=== PATIENT | male | born 1965 | race Two or more races ===

== ENCOUNTER 2017-12-22 20:31 | Emergency (ER) | payer MEDICAID ==
[~2017-12-22] VITALS: Ht 167.6 cm; Wt 72.1 kg
[2017-12-23] MEDS ORDERED: HYDROcodone-ACET 10/325MG TAB PO ONE (00:45)
[2017-12-23] MEDS ORDERED: cefTRIAXone SOD 1,000 MG VL IM ONE (00:45)
[2017-12-23 01:10] VITALS: BP 154/88
[2017-12-23] MEDS ORDERED: TETANUS-DIPTH-ACEL PERTUSSIS 0.5ML SYRG IM ONE (01:15)
== END 2017-12-23 01:39 | disposition home or self-care (01) ==
LOC: ER 20:31
DX: L02.511 Cutaneous abscess of right hand (principal)
CPT/HCPCS: 26010; 73140; 73200; 90471; 90715; 96372; 99284; J0696

== ENCOUNTER 2017-12-23 20:04 | Emergency (ER) | payer MEDICAID ==
[~2017-12-23] VITALS: Ht 167.6 cm; Wt 77.1 kg
[2017-12-23] MEDS ORDERED: cefTRIAXone SOD 1,000 MG VL IM ONE (21:00)
[2017-12-23 21:08] VITALS: BP 145/97
== END 2017-12-23 21:40 | disposition home or self-care (01) ==
LOC: ER 20:04
DX: L02.512 Cutaneous abscess of left hand (principal); Z48.01 Encounter for change or removal of surgical wound dressing
CPT/HCPCS: 96372; 99283; J0696

== ENCOUNTER 2017-12-24 19:37 | Emergency (ER) | payer MEDICAID ==
[~2017-12-24] VITALS: Ht 167.6 cm; Wt 72.1 kg
[2017-12-24 19:40] VITALS: BP 172/106
[2017-12-24] MEDS: cefTRIAXone SOD 1,000 MG VL IM ONE (19:53)
[2017-12-24] MEDS: cefTRIAXone SOD 1,000 MG VL ONE (19:53)
== END 2017-12-24 20:05 | disposition home or self-care (01) ==
LOC: ER 19:37
DX: Z48.00 Encounter for change or removal of nonsurgical wound dressing (principal)
CPT/HCPCS: 96372; 99283; J0696

== ENCOUNTER 2018-01-01 10:04 | Emergency (ER) | payer MEDICAID ==
[~2018-01-01] VITALS: Ht 167.6 cm; Wt 72.1 kg
[2018-01-01 10:22] VITALS: BP 150/104
== END 2018-01-01 11:22 | disposition home or self-care (01) ==
LOC: ER 10:04
DX: S61.012D Laceration without foreign body of left thumb without damage to nail, subsequent encounter (principal); X58.XXXD Exposure to other specified factors, subsequent encounter

== ENCOUNTER 2019-07-07 13:53 | Emergency (ER) | payer MEDICAID ==
[~2019-07-07] VITALS: Ht 167.6 cm; Wt 70.8 kg
[2019-07-07 14:19] VITALS: BP 154/97
[2019-07-07] MEDS ORDERED: cefTRIAXone SOD 1,000 MG VL IM ONE (14:30)
== END 2019-07-07 15:02 | disposition home or self-care (01) ==
LOC: ER 13:53
DX: L03.115 Cellulitis of right lower limb (principal); I10 Essential (primary) hypertension
CPT/HCPCS: 96372; 99283; J0696

== ENCOUNTER 2019-08-25 21:31 | Emergency (ER) | payer MEDICAID ==
[~2019-08-25] VITALS: Ht 185.4 cm; Wt 72.6 kg
[2019-08-25 22:06] VITALS: BP 176/111
[2019-08-25] MEDS ORDERED: cloNIDine HCL 0.1 MG TAB ONE (22:13)
[2019-08-25] MEDS ORDERED: cloNIDine HCL 0.1 MG TAB PO ONE (22:15)
== END 2019-08-26 00:24 | disposition home or self-care (01) ==
LOC: ER 21:33
DX: S62.337A Displaced fracture of neck of fifth metacarpal bone, left hand, initial encounter for closed fracture (principal); I10 Essential (primary) hypertension; X50.1XXA Overexertion from prolonged static or awkward postures, initial encounter; Y93.89 Activity, other specified; Y92.89 Other specified places as the place of occurrence of the external cause; Y99.8 Other external cause status
CPT/HCPCS: 29130; 73130

== ENCOUNTER 2023-04-12 10:48 | Emergency (ER) | payer MEDICAID ==
[~2023-04-12] VITALS: Ht 167.6 cm; Wt 68.8 kg
[2023-04-12] MEDS ORDERED: ACETAMINOPHEN 325 MG TAB PO ONE (11:15)
[2023-04-12] MEDS ORDERED: HYDROcodone-ACET 10/325MG TAB PO ONE (11:30)
[2023-04-12 11:48] LABS: Urine Bacteria NONE SEEN /hpf (None Seen); Urine Blood Negative /uL (Negative); Urine Specific Gravity 1.011 (1.001-1.035); Urine WBC 1 /hpf (0 - 3)
[2023-04-12 12:54] VITALS: BP 147/97
[2023-04-12] MEDS ORDERED: HYDR-4902 PO (13:07)
[2023-04-12] MEDS ORDERED: IBUP-1455 PO (13:07)
== END 2023-04-12 13:14 | disposition home or self-care (01) ==
LOC: ER 10:48
DX: M54.41 Lumbago with sciatica, right side (principal); I10 Essential (primary) hypertension
CPT/HCPCS: 72100; 81001; 93005

== ENCOUNTER 2023-06-13 08:13 | Inpatient (IN) | payer MEDICAID ==
[~2023-06-13] VITALS: Ht 167.6 cm; Wt 69.9 kg
[~2023-06-13 08:13] MED LIST: HYDR-4902 PO; IBUP-1455 PO
[2023-06-13] MEDS ORDERED: SODIUM CHLORIDE 0.9% 1,000 ML IV ONE ×2 (09:00→13:00)
[2023-06-13 09:29] LABS: Basophils # (auto) 0.1 10 ^3/uL (0-0.2); Basophils % (auto) 0.6 % (0.0-2.0); Eosinophils # (auto) 0.1 10 ^3/uL (0-0.8); Eosinophils % (auto) 1.1 % (0.0-7.0); Hematocrit 43.4 % (41.0-53.0); Hemoglobin 14.5 g/dL (13.5-17.5); Lymphocytes # (auto) 1.1 10 ^3/uL (0.4-5.4); Lymphocytes % (auto) 8.7 % (10.0-50.0); Mean Corpuscular Hemoglobin 30.7 pg (28.0-32.0); Mean Corpuscular Hgb Conc. 33.3 g/dL (32.0-36.0); Mean Corpuscular Volume 92.2 fL (80.0-100.0); Monocytes # (auto) 0.8 10 ^3/uL (0-1.3); Neutrophils # (auto) 10.7 10 ^3/uL (1.6-8.6); Neutrophils % (auto) 83.6 % (37.0-80.0); Red Blood Cells 4.71 10^6/uL (4.5-5.90); Red Cell Distribution Width 13.2 % (11.8-14.3); White Blood Cell 12.8 10^3/uL (4.4-10.8)
[2023-06-13 09:44] LABS: INR 0.98 (0.9-1.15); Partial Thromboplastin Time 30.3 SEC (24.5-34.5); Prothrombin Time 10.3 sec (9.3-11.8)
[2023-06-13 10:21] LABS: Alanine Aminotransferase 25 U/L (7-40); Albumin 4.5 g/dL (3.2-4.8); Alkaline Phosphatase 122 U/L (46-116); Anion Gap 5.9 (5-15); Aspartate Aminotransferase 13 U/L (13-40); BUN/Creatinine Ratio 11.9 (10.0-20.0); Blood Urea Nitrogen 8 mg/dL (9-23); Calcium 9.1 mg/dL (8.5-10.1); Carbon Dioxide 25.1 mmol/L (20-30); Chloride 104 mmol/L (98-107); Glucose 103 mg/dL (74-106); Potassium 3.9 mmol/L (3.5-5.1); Sodium 135 mmol/L (136-145); Total Protein 7.2 g/dL (5.7-8.2)
[2023-06-13 11:14] LABS: Bilirubin, Total 1.8 mg/dL (0.2-1.0)
[2023-06-13] MEDS ORDERED: HYDROcodone-ACET 5/325MG TAB PO PRN (13:00)
[2023-06-13] MEDS ORDERED: levoFLOXacin 500MG 100 ML IV ONE (13:00)
[2023-06-13] MEDS ORDERED: ACETAMINOPHEN 325 MG TAB PO PRN (13:00)
[2023-06-13] MEDS ORDERED: PANTOPRAZOLE 40 MG/10 ML VIAL INJ IV ONE (13:00)
[2023-06-13] MEDS ORDERED: HYDROcodone-ACET 10/325MG TAB PO PRN (13:00)
[2023-06-13 13:08] LABS: Urine Bacteria NONE SEEN /hpf (None Seen); Urine Blood Negative /uL (Negative); Urine Clarity Clear (Clear); Urine Mucus FEW (None Seen); Urine Protein, UAD TRACE (Negative); Urine Urobilinogen Normal (Negative); Urine WBC 1 /hpf (0 - 3); Urine pH 6.5 (5.0-8.0)
[2023-06-13 13:28] LABS: Urine Color Straw (Yellow); Urine Specific Gravity > 1.050 (1.001-1.035)
[2023-06-13 15:55] VITALS: PULSE 73; RESP 14; O2SAT 95
[2023-06-14 00:25] VITALS: BP 129/76; PULSE 76; RESP 20; TEMP 98.2; O2SAT 96
[2023-06-14] MEDS: SUCRALFATE 1 GM/10 ML ORAL SUSP PO SCH ×4 (05:26→21:40)
[2023-06-14 07:00] LABS: Basophils # (auto) 0 10 ^3/uL (0-0.2); Basophils % (auto) 0.4 % (0.0-2.0); Eosinophils # (auto) 0.2 10 ^3/uL (0-0.8); Eosinophils % (auto) 2.2 % (0.0-7.0); Hematocrit 38.3 % (41.0-53.0); Hemoglobin 13.2 g/dL (13.5-17.5); Lymphocytes # (auto) 1.7 10 ^3/uL (0.4-5.4); Lymphocytes % (auto) 15.6 % (10.0-50.0); Mean Corpuscular Hemoglobin 31.9 pg (28.0-32.0); Mean Corpuscular Hgb Conc. 34.6 g/dL (32.0-36.0); Mean Corpuscular Volume 92.3 fL (80.0-100.0); Monocytes # (auto) 0.8 10 ^3/uL (0-1.3); Monocytes % (auto) 7.2 % (0.0-12.0); Neutrophils % (auto) 74.6 % (37.0-80.0); Nucleated Red Blood Cells % 0.1 %; Red Blood Cells 4.15 10^6/uL (4.5-5.90); Red Cell Distribution Width 13.5 % (11.8-14.3); White Blood Cell 10.7 10^3/uL (4.4-10.8)
[2023-06-14 07:20] LABS: Alanine Aminotransferase 17 U/L (7-40); Albumin 3.9 g/dL (3.2-4.8); Alkaline Phosphatase 100 U/L (46-116); Anion Gap 7.9 (5-15); Aspartate Aminotransferase 8 U/L (13-40); Bilirubin, Total 1.2 mg/dL (0.2-1.0); Blood Urea Nitrogen 9 mg/dL (9-23); Calcium 8.6 mg/dL (8.5-10.1); Carbon Dioxide 24.1 mmol/L (20-30); Chloride 107 mmol/L (98-107); Cholesterol 229 mg/dL (< 200); Glucose 98 mg/dL (74-106); HDL Cholesterol 48 mg/dL (40-59); LDL Cholesterol 162 mg/dL (< 100); Potassium 3.8 mmol/L (3.5-5.1); Sodium 139 mmol/L (136-145); Total Protein 6.3 g/dL (5.7-8.2); Triglycerides 121 mg/dL (< 150)
[2023-06-14] MEDS: PANTOPRAZOLE 40 MG/10 ML VIAL INJ IV SCH (08:59)
[2023-06-14] MEDS: levoFLOXacin 500MG 100 ML IV SCH (08:59)
[2023-06-14 09:01] VITALS: BP 145/80; PULSE 67; RESP 19; TEMP 97.8; O2SAT 96
[2023-06-14] MEDS ORDERED: NALOXONE HCL 0.4 MG/ML VIAL ONE (09:27)
[2023-06-14] MEDS ORDERED: FLUMAZENIL 0.1 MG/ML INJ 10ML MDV IV ONE (09:27)
[2023-06-14] MEDS ORDERED: LIDOCAINE VISCOUS 2% 15ML UD ONE (09:27)
[2023-06-14] MEDS ORDERED: SODIUM CHLORIDE LOCK 10 ML ONE ×2 (09:27→09:30)
[2023-06-14] MEDS ORDERED: MIDAZOLAM HCL 5 MG/ML-1ML VIAL ONE (09:28)
[2023-06-14] MEDS ORDERED: fentaNYL CITRATE 100 MCG/2 ML VL ONE (09:29)
[2023-06-14] MEDS: diphenhdrAMINE HCL 50 MG/1 ML VL ONE ×2 (12:55→12:57)
[2023-06-14 13:00] VITALS: BP 117/69; PULSE 66; RESP 16; TEMP 97.6; O2SAT 95
[2023-06-14 13:09] VITALS: O2SAT 99
[2023-06-14 17:00] VITALS: BP 119/76; PULSE 73; RESP 18; TEMP 98.1; O2SAT 96
[2023-06-14] MEDS: NYSTATIN (MOUTH-THROAT) 500,000 UNITS/5 ML SUSP MT SCH ×2 (18:16→21:40)
[2023-06-14 22:00] VITALS: BP 126/72; PULSE 76; RESP 16; TEMP 97.9; O2SAT 95
[2023-06-15 05:00] VITALS: BP 118/76; PULSE 71; RESP 16; TEMP 97.7; O2SAT 96
[2023-06-15] MEDS: NYSTATIN (MOUTH-THROAT) 500,000 UNITS/5 ML SUSP MT SCH (05:50)
[2023-06-15] MEDS: SUCRALFATE 1 GM/10 ML ORAL SUSP PO SCH (05:50)
[2023-06-15] MEDS ORDERED: PANT40T PO (07:55)
[2023-06-15] MEDS ORDERED: SUCR1TAB PO (07:55)
[2023-06-15 08:00] VITALS: BP 139/79; PULSE 62; RESP 16; TEMP 98.5; O2SAT 96
[2023-06-15 09:24] VITALS: BP 139/79; PULSE 62; RESP 16; TEMP 98.5; O2SAT 96
[2023-06-15] MEDS: levoFLOXacin 500MG 100 ML IV SCH (10:00)
[2023-06-15] MEDS: PANTOPRAZOLE 40 MG/10 ML VIAL INJ IV SCH (10:00)
== END 2023-06-15 10:59 | disposition home or self-care (01) | DRG 241 ==
LOC: ER 08:13 → OVERFLOW 12:54 → CENTRAL 22:40
PROVIDERS: ADMIT Nurse Practitioner Family; ATTEND Family Medicine
PROC: 0DB68ZX Excision of Stomach, Via Natural or Artificial Opening Endoscopic, Diagnostic (ICD-10-PCS; 2023-06-14)
PROC: 0DB48ZX Excision of Esophagogastric Junction, Via Natural or Artificial Opening Endoscopic, Diagnostic (ICD-10-PCS; 2023-06-14)
PROC: 0DB98ZX Excision of Duodenum, Via Natural or Artificial Opening Endoscopic, Diagnostic (ICD-10-PCS; principal; 2023-06-14 12:50)
DX: K29.90 Gastroduodenitis, unspecified, without bleeding (principal); K22.10 Ulcer of esophagus without bleeding; D72.829 Elevated white blood cell count, unspecified; R07.89 Other chest pain; K44.9 Diaphragmatic hernia without obstruction or gangrene; I10 Essential (primary) hypertension; K29.70 Gastritis, unspecified, without bleeding; K29.80 Duodenitis without bleeding
CPT/HCPCS: 36415; 43239; 70491; 71045; 80053; 80061; 81001; 83036; 84443; 84484; 85025; 85610; 85730; 87040; 96361; 96365; 96366; 96375; C9113; G0378; J1956; J2250

== ENCOUNTER 2024-09-28 15:00 | Emergency (ER) | payer MEDICAID ==
[~2024-09-28] VITALS: Ht 167.6 cm; Wt 72.8 kg
[~2024-09-28 15:00] MED LIST changes: -HYDR-4902 PO; -IBUP-1455 PO; +PANT40T PO; +SUCR1TAB PO
[2024-09-28 15:57] VITALS: BP 152/83; PULSE 67; RESP 16; TEMP 97.8; O2SAT 97
--- NOTE | 2024-09-28 15:58 | ED.PDOC ---
Musculoskeletal HPI Comments A 59 YEAR OLD MALE PRESENTS TO THE ED WITH COMPLAINT OF RT SHOULDER PAIN X4DAYS. PT STATES HE STARTED HAVING RIGHT SHOULDER PAIN 4 DAYS AGO. MOVEMENT AND PHYSICAL ACTIVITY INCREASES RIGHT SHOULDER PAIN. PT DENIES TRAUMA. PATIENT DENIES FEVER, CHILLS, SHORTNESS OF BREATH, CHEST PAIN, ABDOMINAL PAIN, NAUSEA, VOMITING, HEADACHE, OR OTHER COMPLAINTS. NO OTHER SYMPTOMS OR MODIFYING FACTORS AT THIS TIME. PATIENT IS ALERT, ORIENTED X 4, AND HAS STEADY GAIT. Chief Complaint: Upper Extremity Time Seen by MD: 15:42 Primary Care Provider: NONE Reviewed Notes: Nurses Notes, Medications, Allergies Allergies: Coded Allergies: NO KNOWN ALLERGIES (Unverified , 12/22/17) Home Meds Active Scripts Sucralfate (Sucralfate) 1 Gm Tab, 1 GM PO QID, #120 TAB Prov:MARCUS STOLL MD 06/15/23 Pantoprazole Sodium Sesquihydr (Pantoprazole Sodium) 40 Mg Tab, 40 MG PO BID, #60 TAB Prov:MARCUS STOLL MD 06/15/23 Information Source: Patient, Spouse Mode of Arrival: Ambulatory Location: Right Extremity Location: Shoulder Timing: Days Severity: Moderate Able to Move Extremity: Yes Bear Weight: Limited Pain: Mild Hand Dominance: Right Mechanism: Unknown Circumstances: Unknown Onset of Symptoms: Spontaneous Symptoms: Pain Last Tetanus: UTD Associated signs and symptoms: Shoulder pain (RIGHT) Past Medical History PAST MEDICAL HISTORY: HTN Surgical History: Denies all surgeries Family History Family History: Reviewed,noncontributory to illness, No family hx of Cancer, No family hx of DM, No family hx of Heart yordan, No family hx of HTN, No family hx ofKidney yordan, No family hx of Liver yordan, No family hx of Lung yordan, No family hx of Stroke Social History Smoker: Non-Smoker Alcohol: Denies ETOH Use Drugs: Denies Drug Use Lives In: Home Constitutional: denies: chills, diaphoresis, fatigue, fever, malaise, sweats, weakness, others EENTM: denies: blurred vision, double vision, ear bleeding, ear discharge, ear drainage, ear pain, ear ringing, eye pain, eye redness, hearing loss, mouth pain, mouth swelling, nasal discharge, nose bleeding, nose congestion, nose pain, photophobia, tearing, throat pain, throat swelling, voice changes, others Respiratory: denies: cough, hemoptysis, orthopnea, SOB at rest, shortness of breath, SOB with excertion, stridor, wheezing, others Cardiovascular: denies: chest pain, dizzy spells, diaphoresis, Dyspnea on exertion, edema, irregular heart beat, left arm pain, lightheadedness, palpitations, PND, syncope, others Gastrointestinal: denies: abdomen distended, abdominal pain, blood streaked bowels, constipated, diarrhea, dysphagia, difficulty swallowing, hematemesis, melena, nausea, poor appetite, poor fluid intake, rectal bleeding, rectal pain, vomiting, others Genitourinary: denies: burning, dysuria, flank pain, frequency, hematuria, incontinence, penile discharge, penile sore, pain, testicle pain, testicle swelling, urgency, others Neurological: denies: dizziness, fainting, headache, left sided numbness, left sided weakness, numbness, paresthesia, pre-existing deficit, right sided numbness, right sided weakness, seizure, speech problems, tingling, tremors, weakness, others Musculoskeletal: reports: joint pain (RT SHOULDER), muscle pain; denies: back pain, gout, joint swelling, muscle stiffness, neck pain, others Integumetry: denies: bruises, change in color, change in hair/nails, dryness, laceration, lesions, lumps, rash, wounds, others Allergic/Immunocompromised: denies: Difficulty Healing, Frequent Infections, Hives, Itching, others Hematologic/Lymphatic: denies: anemia, blood clots, easy bleeding, easy bruising, swollen glands, others Endocrine: denies: excessive hunger, excessive sweating, excessive thirst, excessive urination, flushing, intolerance to cold, intolerance to heat, unexplained weight gain, unexplained weight loss, others Psychiatric: denies: anxiety, bipolar disorder, depression, hopeless, panic disorder, schizophrenia, sleepless, suicidal, others All Other Systems: Reviewed and Negative Physical Exam General Appearance: No Apparent Distress, Normal HEENT: Normal ENT Inspection, PERRL/EOMI, Pharynx Normal, TMs Normal Neck: Full Range of Motion, Non-Tender, Normal, Normal Inspection Respiratory: Chest Non-Tender, Lungs Clear, No Accessory Muscle Use, No Respiratory Distress, Normal Breath Sounds Cardiovascular: No Edema, No JVD, No Murmur, No Gallop, Normal Peripheral Pulses, Regular Rate/Rhythm Breast Exam: Deferred Gastrointestinal: No Organomegaly, Non Tender, No Pulsatile Mass, Normal Bowel Sounds, Soft Genitalia: Deferred Pelvic: Deferred Rectal: Deferred Extremities: Decreased range of motion (SLIGHTLY. ), No calf tenderness, Normal capillary refill, No pedal edema, Tender (ON RIGHT SHOULDER, NO BONY TENDERNESS, SWELLING AND DEFORMITY. ) Musculoskeletal : Apperance: Normal Neurologic: Alert, diabetes solutions specialist II-XII nml as Tested, No Motor Deficits, Normal Affect, Normal Mood, No Sensory Deficits Cerebellar Function: Normal Reflexes: Normal Skin: Dry, Normal Color, Warm Peripheral Pulses: 2+ carotid (R), 2+ carotid (L) Lymphatic: No Adenopathy Was a procedure done? Was a procedure done?: No Differential Diagnosis EXT Differential Diagnosis: Fracture, Sprain, Contusion, Strain, Arthritis, Bursitis, Other (TENDONITIS ) X-Ray, Labs, Meds, VS Vital Signs Date Time Temp Pulse Resp B/P (MAP) Pulse Ox O2 Delivery O2 Flow Rate FiO2 09/28/24 15:57 97.8 67 16 152/83 (106) 97 97.8 09/28/24 15:57 67 16 97 Room Air* 0 21 09/28/24 15:10 97.8 67 16 152/83 (106) [address] [place] [address] Ph: [phone] DIAGNOSTIC IMAGING Diagnostic Imaging Report : [id number] Signed PATIENT: SHAILESH JULES ACCT: [id number] UNIT: [id number] : 1965 LOC: ER ROOM / BED: / AGE / SEX: 59 / M ADM STATUS: REG ER SERVICE 1549 ORDERING PHYSICIAN: LEVON VELASCO PROCEDURE(s): RSHD2 - R SHOULDER 2+ VIEW XRAY REASON: PAIN, NO INJURY ORDER NUMBER(s): [id number], ACCESSION NUMBER(s): [id number] CLINICAL INDICATION: PAIN, NO INJURY TECHNIQUE: 3 radiographic views of the right shoulder were obtained. Comparison: None FINDINGS/IMPRESSION: There is no evidence of acute fracture or dislocation. The visualized joint space is well maintained. The alignment is anatomical. There is no radiopaque foreign body. ATED BY: RAYNA STRONG DO DICTATED DATE/TIME: 09/28/241628 SIGNED BY: RAYNA STRONG DO SIGNED DATE/TIME: 09/28/241628 CC: X-Ray, Labs, Meds, VS Comment COURSE: EXTERNAL MEDICAL RECORDS REVIEWED: [NONE] INDEPENDENT HISTORIANS: SPOUSE SOCIAL DETERMINANTS OF HEALTH: [NONE] LABS ORDERED: NONE REVIEWED AND INTERPRETED RESULTS: NONE IMAGING ORDERED: RT SHOULDER X-RAY NORMAL X RAY RESULT: INTERPRETED BY ME. NO ACUTE FINDINGS. NO FRACTURES OR DISLOCATION. PENDING RADIOLOGIST REPORT. TREATMENTS ORDERED: TYLENOL 1000MG PO PROCEDURES PERFORMED: NONE CRITICAL CARE TIME: NONE I HAVE DISCUSSED THE PATIENT WITH THE ATTENDING PHYSICIAN DR. BRIGETTE ATWOOD AND SHE AGREES WITH THE PATIENT'S PLAN OF CARE AND DISPOSITION. GIVEN THE HISTORY AND PRESENT ILLNESS OF THE PATIENT, AFTER REVIEWING LABS, IMAGING, AND COURSE OF TREATMENT ADMINISTERED DURING THEIR ED VISIT, THERE IS LOW SUSPICION FOR RED FLAG FINDINGS. BASED ON HISTORY OF PRESENT ILLNESS, AND PHYSICAL EXAM, PATIENT WILL BE DISCHARGED HOME. DISCUSSED PLAN FOR DISCHARGE HOME WITH RX. MEDICATION WARNINGS GIVEN. SHARED DECISION MAKING: DISCUSSED WITH PATIENT THAT THEIR WORKUP WAS NORMAL. PATIENT INSTRUCTED TO FOLLOW UP WITH PRIMARY CARE PROVIDER IN 1-2 DAYS FOR RE- EVALUATION OF SYMPTOMS. PATIENT VERBALIZES UNDERSTANDING TO RETURN TO ED FOR NEW OR WORSENING SYMPTOMS OR IF FOLLOW UP WITH PCP CANNOT BE OBTAINED. PATIENT FEELS COMFORTABLE GOING HOME AT THIS TIME. ALL QUESTIONS ADDRESSED AT TIME OF DISCHARGE. Time of 1ST Reevaluation: 17:00 Reevaluation 1ST: Improved Patient Education/Counseling: Diagnosis, Treatment, Need For Follow Up Family Education/Counseling: Diagnosis, Treatment, Need For Follow Up Medical Screening: No EMC Exist At This Time Departure 1 Departure Time of Disposition: 17:20 Impression: Primary Impression: Tendinitis of right shoulder Disposition: 01 HOME / SELF CARE / HOMELESS Condition: Stable Additional Instructions: FOLLOW-UP WITH PCP IN 1 TO 2 DAYS. TAKE MEDICATIONS PRESCRIBED. RETURN TO ED FOR ANY NEW OR WORSENING SYMPTOMS. e-Prescriptions Ibuprofen (Ibuprofen) 800 Mg Tab 1 TAB PO TID, #30 TAB Prov: LEVON VELASCO 09/28/24 Discharged With: Self, Spouse Critical Care Note Critical Care Time?: No Stability Stability form required: No Heart Score Heart Score: Heart Score Response (Comments) Value History N/A 0 EKG N/A 0 Age N/A 0 Risk Factors N/A 0 Troponin N/A 0 Total 0 I personally scribed for LEVON VELASCO ([email or web address]) on 09/28/24 at 15:58. Electronically submitted by Jessie Alexis ([email or web address]). I personally scribed for LEVON VELASCO ([email or web address]) on 09/28/24 at 16:01. Electronically submitted by Jessie Alexis ([email or web address]). I personally scribed for LEVON VELASCO ([email or web address]) on 09/28/24 at 16:40. Electronically submitted by Jessie Alexis ([employer]). LEVON VELASCO Sep 28, 2024 15:58
--- NOTE | 2024-09-28 16:32 | DVH ---
CLINICAL INDICATION: PAIN, NO INJURY TECHNIQUE: 3 radiographic views of the right shoulder were obtained. Comparison: None FINDINGS/IMPRESSION: There is no evidence of acute fracture or dislocation. The visualized joint space is well maintained. The alignment is anatomical. There is no radiopaque foreign body.
[2024-09-28] MEDS ORDERED: IBUP-1456 PO (16:59)
[2024-09-28] MEDS: ACETAMINOPHEN 500 MG TAB or CAP PO ONE (17:04)
== END 2024-09-28 17:15 | disposition home or self-care (01) ==
LOC: ER 15:00
DX: M75.91 Shoulder lesion, unspecified, right shoulder (principal); I10 Essential (primary) hypertension; Z79.899 Other long term (current) drug therapy
CPT/HCPCS: 73030

== ENCOUNTER 2025-07-16 19:02 | Emergency (ER) | payer MEDICAID ==
[~2025-07-16] VITALS: Ht 167.6 cm; Wt 71.4 kg
[~2025-07-16 19:02] MED LIST changes: +IBUP-1456 PO
[2025-07-16 20:35] VITALS: BP 161/95; PULSE 98; RESP 16; TEMP 98.3; O2SAT 99
[2025-07-16] MEDS ORDERED: PRED20TA2 PO (20:42)
[2025-07-16] MEDS ORDERED: CLIN1CAP70 PO (20:42)
[2025-07-16] MEDS ORDERED: IBUP-1456 PO (20:42)
--- NOTE | 2025-07-16 20:43 | ED.PDOC ---
History of Present Illness(SKN HPI Comments 60-year-old male presents to ER with complaints of insect bite x1 day. Patient reports that he was bit by an unknown type of insect on his right leg while doing yard work yesterday and has since been experiencing 8/10 right leg pain with associated redness/swelling. States that he did take a penicillin antibiotics yesterday that he had left over from a prior prescription. Patient presents to ER ambulatory, afebrile, with steady gait, in no distress. Denies fever, body aches, chills, skin drainage, calf pain, headache, n/v or any further symptoms/complaints Chief Complaint: Bite Time Seen by MD: 19:19 Primary Care Provider: UNKNOWN History of Present Illness: Nurses Notes, Medications, Allergies Allergies: Coded Allergies: NO KNOWN ALLERGIES (Unverified , 12/22/17) Home Meds Active Scripts Ibuprofen (Ibuprofen) 800 Mg Tab, 1 TAB PO TID PRN, #30 TAB 0 Refills Prov:FRANSISCA DIAMOND 07/16/25 Prednisone (Prednisone) 20 Mg Tab, 20 MG PO BID for 5 Days, #10 TAB 0 Refills Prov:FRANSISCA DIAMOND 07/16/25 Clindamycin Hcl (Clindamycin Hcl) 300 Mg Cap, 300 MG PO QID for 7 Days, #28 CAP 0 Refills Prov:FRANSISCA DIAMOND 07/16/25 Ibuprofen (Ibuprofen) 800 Mg Tab, 1 TAB PO TID, #30 TAB Prov:LEVON VELASCO 09/28/24 Sucralfate (Sucralfate) 1 Gm Tab, 1 GM PO QID, #120 TAB Prov:MARCUS STOLL MD 06/15/23 Pantoprazole Sodium Sesquihydr (Pantoprazole Sodium) 40 Mg Tab, 40 MG PO BID, #60 TAB Prov:MARCUS STOLL MD 06/15/23 Information Source: Patient Mode of Arrival: Ambulatory Tetanus: UTD Past Medical History PAST MEDICAL HISTORY: HTN Surgical History: Denies all surgeries Family History Family History: Unknown Social History Smoker: Non-Smoker Alcohol: Denies ETOH Use Drugs: Denies Drug Use Lives In: Home Constitutional: denies: chills, diaphoresis, fatigue, fever, malaise, sweats, weakness, others EENTM: denies: blurred vision, double vision, ear bleeding, ear discharge, ear drainage, ear pain, ear ringing, eye pain, eye redness, hearing loss, mouth pain, mouth swelling, nasal discharge, nose bleeding, nose congestion, nose pain, photophobia, tearing, throat pain, throat swelling, voice changes, others Respiratory: denies: cough, hemoptysis, orthopnea, SOB at rest, shortness of breath, SOB with excertion, stridor, wheezing, others Cardiovascular: denies: chest pain, dizzy spells, diaphoresis, Dyspnea on exertion, edema, irregular heart beat, left arm pain, lightheadedness, palpitations, PND, syncope, others Gastrointestinal: denies: abdomen distended, abdominal pain, blood streaked bowels, constipated, diarrhea, dysphagia, difficulty swallowing, hematemesis, melena, nausea, poor appetite, poor fluid intake, rectal bleeding, rectal pain, vomiting, others Genitourinary: denies: burning, dysuria, flank pain, frequency, hematuria, incontinence, penile discharge, penile sore, pain, testicle pain, testicle swelling, urgency, others Neurological: denies: dizziness, fainting, headache, left sided numbness, left sided weakness, numbness, paresthesia, pre-existing deficit, right sided numbness, right sided weakness, seizure, speech problems, tingling, tremors, weakness, others Musculoskeletal: denies: back pain, gout, joint pain, joint swelling, muscle pain, muscle stiffness, neck pain, others Integumetry: reports: others (As stated in HPI) Allergic/Immunocompromised: denies: Difficulty Healing, Frequent Infections, Hives, Itching, others Hematologic/Lymphatic: denies: anemia, blood clots, easy bleeding, easy bruising, swollen glands, others Endocrine: denies: excessive hunger, excessive sweating, excessive thirst, excessive urination, flushing, intolerance to cold, intolerance to heat, unexplained weight gain, unexplained weight loss, others Psychiatric: denies: anxiety, bipolar disorder, depression, hopeless, panic disorder, schizophrenia, sleepless, suicidal, others Physical Exam General Appearance: No Apparent Distress HEENT: PERRL/EOMI Neck: Full Range of Motion, Non-Tender, Normal Respiratory: Chest Non-Tender, Lungs Clear, No Accessory Muscle Use, No Respiratory Distress, Normal Breath Sounds Cardiovascular: No JVD, No Murmur, No Gallop, Regular Rate/Rhythm Breast Exam: Deferred Gastrointestinal: NOT DONE Genitalia: Deferred Pelvic: Deferred Rectal: Deferred Extremities: No calf tenderness, Normal capillary refill, Normal range of motion Neurologic: Alert, woven wood shade assembler II-XII nml as Tested, No Motor Deficits, Normal Affect, Normal Mood, No Sensory Deficits Cerebellar Function: Normal Reflexes: Normal Skin: Dry, Warm Peripheral Pulses: 2+ dorsalis pedis (R), 2+ dorsalis pedis (L), 2+ Radial (R), 2+ Radial (L), 2+ Brachial (R), 2+ Brachial (L) Lymphatic: No Adenopathy Was a procedure done? Was a procedure done?: No Sedation Sedation?: No Images 1 - Mild swelling/erythema/increased warmth noted. No bony tenderness noted. No fluctuance/red streaking/FB/further skin changes noted Differential Diagnosis (INTG) Differential Diagnosis: Abscess Differential Diagnosis: Neurovascular Injury Differential Diagnosis: Retained Foreign Body X-Ray, Labs, Meds, VS Vital Signs Date Time Temp Pulse Resp B/P (MAP) Pulse Ox O2 Delivery O2 Flow Rate FiO2 07/16/25 20:36 Room Air* 0 21 07/16/25 20:35 98.3 98 16 161/95 (117) 99 98.3 07/16/25 19:09 98.3 98 16 161/95 99 98.3 Rocephin 1 g IM ordered Solu-Medrol 125 mg IM ordered Advised to discontinue penicillin antibiotics and take the following antibiotics below as prescribed Patient afebrile, well appearing and in no distress during ER visit/prior to discharge Advised to follow up with PCP in 1-2 days Patient verbalized understanding and agreeable with current plan of care Advised to return to ER immediately if symptoms worsen Time of 1ST Reevaluation: 20:12 Reevaluation 1ST: N/A Patient Education/Counseling: Diagnosis, Treatment, Prognosis, Need For Follow Up Family Education/Counseling: Diagnosis, Treatment, Prognosis, Need For Follow Up SEPSIS Sepsis Screen Date sepsis recognized/suspect: Jul 16, 2025 Time Sepsis recognized/suspect: 1908 Recent Procedure: No On Antibiotic Therapy: No Respiratory Rate >20: No Heart Rate >90: Yes Temp<36 C (96.8 F) or >38.3 C: No SBP <90 or MAP <65 mmHG: No New Acute Mental Status Change: No Is the patient on CPAP, BIPAP,: No Physician Orders Ceftriaxone Sodium (Rocephin) (07/16/25 20:45) Methylprednisolone Sod Succ (Solu Medrol (07/16/25 20:45) Vital Signs Date Time Temp Pulse Resp B/P (MAP) Pulse Ox O2 Delivery O2 Flow Rate FiO2 07/16/25 20:36 Room Air* 0 21 07/16/25 20:35 98.3 98 16 161/95 (117) 99 98.3 07/16/25 19:09 98.3 98 16 161/95 99 98.3 Departure 1 Departure Time of Disposition: 20:32 Impression: Primary Impression: Cellulitis of right leg Disposition: HOME / SELF CARE / HOMELESS Condition: Stable e-Prescriptions Ibuprofen (Ibuprofen) 800 Mg Tab 1 TAB PO TID PRN, #30 TAB 0 Refills Prov: FRANSISCA DIAMOND 07/16/25 Prednisone (Prednisone) 20 Mg Tab 20 MG PO BID for 5 Days, #10 TAB 0 Refills Prov: FRANSISCA DIAMOND 07/16/25 Clindamycin Hcl (Clindamycin Hcl) 300 Mg Cap 300 MG PO QID for 7 Days, #28 CAP 0 Refills Prov: FRANSISCA DIAMOND 07/16/25 Discharged With: Self Critical Care Note Critical Care Time?: No Stability Stability form required: No Heart Score Heart Score: Heart Score Response (Comments) Value History N/A 0 EKG N/A 0 Age N/A 0 Risk Factors N/A 0 Troponin N/A 0 Total 0 FRANSISCA DIAMOND Jul 16, 2025 20:43
[2025-07-16] MEDS: cefTRIAXone SOD 1,000 MG VL IM ONE (20:49)
[2025-07-16] MEDS: methylPREDNISolone SOD SUCC 125 MG/2 ML VL IM ONE (20:49)
== END 2025-07-16 20:55 | disposition home or self-care (01) ==
LOC: ER 19:02
DX: L03.115 Cellulitis of right lower limb (principal); I10 Essential (primary) hypertension; Z79.899 Other long term (current) drug therapy; W57.XXXA Bitten or stung by nonvenomous insect and other nonvenomous arthropods, initial encounter; Y93.89 Activity, other specified; Y92.89 Other specified places as the place of occurrence of the external cause; Y99.8 Other external cause status
CPT/HCPCS: 96372; 99284; J0696; J2919